=== PATIENT | female | born 1995 | race Two or more races ===

== ENCOUNTER 2018-10-07 10:51 | Emergency (ER) | payer BC, OTHER ==
[~2018-10-07] VITALS: Ht 160 cm; Wt 54.4 kg
[~2018-10-07 10:51] MED LIST: IBUPROFEN800 MG PO; NORCO 5/3251 TAB ORAL
[2018-10-07] MEDS ORDERED: birth control pill (10:59)
[2018-10-07 11:44] VITALS: BP 132/72
[2018-10-07] MEDS ORDERED: IBUPROFEN600 MG ORAL (11:52)
[2018-10-07 11:59] VITALS: BP 132/72
--- NOTE | 2018-10-09 06:57 | Emergency Room Report ---
History of Present Illness General Chief Complaint: Female Urogenital Problems Source: Patient Present Illness HPI Patient presents with complaints of vaginal irritation and discomfort She gives a history that on Wednesday after workout She had sexual contact with her boyfriend Soon after that she has had developed some symptoms of itching and tingling has been seen at the [facility] clinic Several times now with different testing and diagnosis of UTI and vaginosis She reports having swabs done which were negative for herpes However as the pain has persisted and worsened she presents to the ER Allergies: Coded Allergies: No Known Allergies (Unverified , 10/07/18) Patient History Past Medical History: see triage record Pertinent Family History: none Last Menstrual Period: 09/23/18 Reviewed Nursing Documentation: PMH: Agreed; PSxH: Agreed Nursing Documentation-PMH Past Medical History: No Stated History Review of Systems All Other Systems: negative except mentioned in HPI Physical Exam Vital Signs Date Time Temp Pulse Resp B/P (MAP) Pulse Ox O2 Delivery O2 Flow Rate FiO2 10/07/18 10:55 98.4 106 18 132/72 97 Room Air Sp02 EP Interpretation: reviewed, normal General Appearance: well appearing Head: normocephalic, atraumatic Eyes: bilateral eye PERRL, bilateral eye EOMI ENT: hearing grossly normal, other - Lesions of the right lateral part of the tongue Neck: supple, other - Right-sided submental lymphadenopathy Respiratory: lungs clear Cardiovascular #1: regular rate, rhythm Gastrointestinal: soft, no mass Genitourinary: no CVA tenderness, other - External vaginal evaluation with female nurse at bedside reveals lesions consistent with herpetic lesions erythematous base blister formation mainly on the left labora major Musculoskeletal: normal inspection Neurologic: alert, oriented x3 Skin: other - As above Lymphatic: other - As above Medical Decision Making Diagnostic Impression: Primary Impression: herpes infection ER Course During the exam patient's findings are consistent with herpetic lesions on the vaginal area patient's prescription that was written at the [facility] clinic is reviewed Appears to be the appropriate dosing patient will initiate that medication and requires close outpatient follow-up Last Vital Signs Date Time Temp Pulse Resp B/P (MAP) Pulse Ox O2 Delivery O2 Flow Rate FiO2 10/07/18 11:59 98.4 106 18 132/72 97 Room Air Status: improved Disposition: HOME, SELF-CARE Condition: Stable Scripts Ibuprofen* (MOTRIN*) 600 Mg Tablet 600 MG ORAL Q6H PRN for For Pain, #20 TAB Prov: Katarina Johnson DO 10/07/18 Referrals: NON PHYSICIAN (PCP) Patient Instructions: Genital Herpes, Rash, [id number] Additional Instructions: The medicine prescribed (acyclovir) appears to be the correct dosing. You could potentially require a longer treatment if symptoms have not fully resolved. Keep the area dry and clean, do not shave the area and please feel free to return with any worsening symptoms Katarina Johnson DO Oct 09, 2018 06:57
== END 2018-10-07 11:50 | disposition home or self-care (01) ==
LOC: EMR 11:15
DX: B00.9 Herpesviral infection, unspecified (principal)
CPT/HCPCS: 99282